=== PATIENT | male | born 1955 | race Caucasian/White ===

== ENCOUNTER → 2019-05-28 | Outpatient (CLI) | payer BC, MEDICARE | LOC: COL.RAD 05-21 09:00 | DX: M25.551 Pain in right hip (principal) | CPT/HCPCS: J3301; Q9967 ==

== ENCOUNTER → 2019-10-02 | Outpatient (CLI) | payer BC, MEDICARE | LOC: COL.RAD 09-23 13:00 | DX: M25.551 Pain in right hip (principal) | CPT/HCPCS: J3301; Q9967 ==

== ENCOUNTER 2020-05-04 15:00 | Outpatient (RCR) | payer BC, MEDICARE ==
[2020-05-11] MEDS ORDERED: NAMZARIC TITRA1 EACH PO (10:29)
[2020-05-11] MEDS ORDERED: NAMENDA 10MG TA10 MG PO (10:29)
[2020-05-11] MEDS ORDERED: SEROQUEL50 MG PO (10:29)
[2020-05-11] MEDS ORDERED: ARICEPT10 MG PO (10:30)
== END 2020-07-21 | disposition home or self-care (01) ==
LOC: WSST
DX: F80.9 Developmental disorder of speech and language, unspecified (principal); G30.9 Alzheimer's disease, unspecified

== ENCOUNTER 2020-05-11 06:37 | Emergency (ER) | payer BC, MEDICARE ==
[~2020-05-11] VITALS: Ht 182.9 cm; Wt 95.5 kg
[2020-05-11 06:39] VITALS: TEMP 97.7
[2020-05-11 07:34] LABS: BASO # 0.1 (0.0-0.2); BASO % 1.2 % (0.0-2.0); EOS # 0.1 (0.0-0.7); EOS % 2.1 % (0-4.0); GRAN # 4.2 (1.4-6.5); HEMATOCRIT 42.3 % (42.0-52.0); LYMPH # 1.3 (1.2-3.4); LYMPH % 21.3 % (20.0-51.0); MEAN CELL VOLUME 86 fl (80.0-100.0); MEAN CORPUSCULAR HEMOGLOBIN 31 pg (27.0-31.0); MEAN CORPUSCULAR HGB CONC 36 g/dl (33.0-37.0); MEAN PLATELET VOLUME 8.8 fl (7.4-10.4); MONO # 0.4 (0.1-0.6); MONO % 6.1 % (1.7-9.3); PLATELET COUNT 188 K/mm3 (130-400); REDCELL DISTRIBUTION WIDTH-CV 13.1 % (11.5-14.5)
[2020-05-11 07:50] LABS: ALANINE AMINOTRANSFERASE 24 U/L (4-49); ALBUMIN 4.3 gm/dL (3.5-5.0); ALKALINE PHOSPHATASE 75 U/L (50-136); ANION GAP 10 mmol/L (7-16); AST,SGOT 31 U/L (15-37); BILIRUBIN,TOTAL 0.8 mg/dL (0.0-1.0); BLOOD UREA NITROGEN 12 mg/dL (9-20); CALCIUM 9.3 mg/dL (8.4-10.2); CARBON DIOXIDE 25 mmol/L (22-30); CHLORIDE 105 mmol/L (98-107); CREATININE, serum 1.14 (0.66-1.25); GLUCOSE 130 mg/dL (74-106); POTASSIUM 3.8 mmol/L (3.4-5.0); SODIUM 140 mmol/L (137-145)
[2020-05-11 07:51] LABS: ALCOHOL(ethanol),MEDICAL < 10 mg/dL; PROTHROMBIN TIME 11.4 SECONDS (9.7-12.8)
[2020-05-11 08:06] LABS: PROLACTIN 23.6 ng/mL (3.7-17.9)
[2020-05-11 09:11] LABS: COLLECTION METHOD CLEAN CATCH
[2020-05-11 09:44] LABS: MUCOUS Present /lpf; PH 6 (5-8); SQUAMOUS EPITHELIAL 0-2 /hpf; URINE APPEARANCE Clear; URINE BACTERIA Rare /hpf; URINE BILIRUBIN Negative (NEGATIVE); URINE BLOOD Negative (NEGATIVE); URINE COLOR Yellow; URINE GLUCOSE Negative (NEGATIVE); URINE KETONE Negative (NEGATIVE); URINE LEUKOCYTE ESTERASE Negative (NEGATIVE); URINE NITRATE Negative (NEGATIVE); URINE PROTEIN(semi-quant) Negative (NEGATIVE); URINE RBC 0-2 /hpf; URINE UROBILINOGEN Negative (NEGATIVE)
[2020-05-11] MEDS ORDERED: NAMZARIC TITRA1 EACH PO (10:29)
[2020-05-11] MEDS ORDERED: SEROQUEL50 MG PO (10:29)
[2020-05-11] MEDS ORDERED: NAMENDA 10MG TA10 MG PO (10:29)
[2020-05-11] MEDS ORDERED: ARICEPT10 MG PO (10:30)
[2020-05-11 10:45] VITALS: BP 127/93; PULSE 92
== END 2020-05-11 10:45 | disposition home or self-care (01) ==
LOC: COL.ER 06:37
PROVIDERS: Emergency Medicine
DX: R56.9 Unspecified convulsions (principal)
CPT/HCPCS: J2060; J7030

== ENCOUNTER → 2020-06-14 | Outpatient (CLI) | payer BC, MEDICARE ==
[~2020-06-14] MED LIST: ARICEPT10 MG PO; NAMENDA 10MG TA10 MG PO; NAMZARIC TITRA1 EACH PO; SEROQUEL50 MG PO
== END ==
LOC: COL.RAD 08:36
DX: M16.11 Unilateral primary osteoarthritis, right hip (principal)
CPT/HCPCS: J3301; Q9967

== ENCOUNTER 2021-04-06 13:10 | Emergency (ER) | payer MEDICARE ==
[~2021-04-06] VITALS: Ht 188 cm; Wt 90.9 kg
[2021-04-06 14:24] LABS: BASO % 0.2 % (0.0-2.0); GRAN # 12.7 (1.4-6.5); GRAN % 88.9 % (42.2-75.2); HEMOGLOBIN 12.3 g/dl (13.5-18.0); LYMPH # 0.5 (1.2-3.4); LYMPH % 3.3 % (20.0-51.0); MEAN CELL VOLUME 89 fl (80.0-100.0); MEAN CORPUSCULAR HEMOGLOBIN 30 pg (27.0-31.0); MEAN CORPUSCULAR HGB CONC 34 g/dl (33.0-37.0); MEAN PLATELET VOLUME 9.1 fl (7.4-10.4); MONO % 6.8 % (1.7-9.3); PLATELET COUNT 143 K/mm3 (130-400); RED BLOOD COUNT 4.04 M/mm3 (4.20-5.60); REDCELL DISTRIBUTION WIDTH-CV 13.3 % (11.5-14.5)
[2021-04-06 14:28] LABS: HEMATOCRIT 36.1 % (42.0-52.0)
[2021-04-06 14:35] LABS: ALANINE AMINOTRANSFERASE 15 U/L (4-49); ALBUMIN 3.3 gm/dL (3.5-5.0); ALKALINE PHOSPHATASE 65 U/L (50-136); ANION GAP 9 mmol/L (7-16); AST,SGOT 21 U/L (15-37); BILIRUBIN,TOTAL 1.4 mg/dL (0.0-1.0); BLOOD UREA NITROGEN 19 mg/dL (9-20); CALCIUM 7.9 mg/dL (8.4-10.2); CARBON DIOXIDE 22 mmol/L (22-30); CHLORIDE 105 mmol/L (98-107); GLUCOSE 138 mg/dL (74-106); POTASSIUM 3.6 mmol/L (3.4-5.0); SODIUM 136 mmol/L (137-145)
[2021-04-06 14:46] LABS: TROPONIN-I < 0.012 ng/mL (0.000-0.035)
[2021-04-06 15:49] LABS: COLLECTION METHOD CLEAN CATCH
[2021-04-06 16:30] LABS: PH 6 (5-8); SQUAMOUS EPITHELIAL None Seen /hpf; URINE APPEARANCE Clear; URINE BACTERIA Rare /hpf; URINE BILIRUBIN Negative (NEGATIVE); URINE BLOOD Negative (NEGATIVE); URINE COLOR Straw; URINE GLUCOSE Negative (NEGATIVE); URINE KETONE Negative (NEGATIVE); URINE LEUKOCYTE ESTERASE Negative (NEGATIVE); URINE NITRATE Negative (NEGATIVE); URINE PROTEIN(semi-quant) Negative (NEGATIVE); URINE RBC None Seen /hpf; URINE UROBILINOGEN Negative (NEGATIVE)
[2021-04-06 16:48] VITALS: TEMP 98.3
[2021-04-06 17:25] VITALS: BP 103/69; PULSE 67
== END 2021-04-06 17:28 | disposition home or self-care (01) ==
LOC: COL.ER 13:10
PROVIDERS: Emergency Medicine
DX: R41.0 Disorientation, unspecified (principal); G30.9 Alzheimer's disease, unspecified; Z79.899 Other long term (current) drug therapy
CPT/HCPCS: J7030